=== PATIENT | female | born 2000 | race African-American/Black ===

== ENCOUNTER 2021-09-29 08:33 | Emergency (ER) | payer MEDICAID, OTHER ==
[~2021-09-29] VITALS: Ht 162.6 cm; Wt 111.1 kg
[2021-09-29 08:33] VITALS: BP 138/95
[2021-09-29 09:33] LABS: Urine Bacteria FEW /hpf (None Seen); Urine Blood Negative /uL (Negative); Urine Specific Gravity 1.024 (1.001-1.035); Urine WBC 129 /hpf (0 - 5)
[2021-09-29] MEDS: LIDOCAINE 1%HCL (LOCAL ANESTH) 10 ML MDV ONE (10:35)
[2021-09-29] MEDS: cefTRIAXone SOD 1,000 MG VL IM ONE (10:35)
[2021-09-29] MEDS ORDERED: CEPH-509 PO (12:02)
[2021-09-29] MEDS ORDERED: CLIN300C8 PO (12:02)
== END 2021-09-29 13:04 | disposition home or self-care (01) ==
LOC: ER 08:33
DX: L03.116 Cellulitis of left lower limb (principal); N39.0 Urinary tract infection, site not specified; Z32.02 Encounter for pregnancy test, result negative
CPT/HCPCS: 10060; 81001; 81025; 96372; 99283; J0696; J2001